=== PATIENT | female | born 1960 ===

== ENCOUNTER 2018-05-21 07:32 | Day surgery (SDC) | payer OTHER ==
[2018-05-20 08:35] VITALS: BMI 22.6
[~2018-05-21 07:32] MED LIST: Lactated Ringer's 500 ML IV ONE; Phenylephrine 2.5% Opht Soln OS SCH; Tropicamide 0.5% Opht Sol OS SCH
[2018-05-21] MEDS ORDERED: Lactated Ringer's 500 ML IV ONE (08:00)
[2018-05-21] MEDS ORDERED: Povidone Iodine Ophthalmic 5% Soln ONE ×2 (08:17→08:19)
[2018-05-21] MEDS ORDERED: Tetracaine 0.5% Ophth (OR ONLY) ONE (08:17)
[2018-05-21] MEDS ORDERED: Carbachol 0.01% IO ONE (08:17)
[2018-05-21] MEDS ORDERED: Chondroitin/Hyaluronate Opth Syringe KIT (0.55 ml-0.5 ml) IO ONE (08:18)
[2018-05-21] MEDS ORDERED: Lidocaine 2% MPF (5 ml) Inj ONE (08:18)
[2018-05-21] MEDS ORDERED: Hyaluronidase Human, Recombi 150 U/ML VIAL ONE (08:18)
[2018-05-21] MEDS ORDERED: Propofol 10 mg/ml Inj (20 ML) ONE (09:25)
[2018-05-21] MEDS ORDERED: Midazolam 2 MG/2 ML VIAL ONE (09:25)
[2018-05-21] MEDS: Tobramycin/Dexamethasone OPHT OINT ONE ×2 (09:38→09:43)
[2018-05-21 12:22] VITALS: TEMP 96
[2018-05-21 12:26] VITALS: BP 128/70; PULSE 78; RESP 21; O2SAT 99
--- NOTE | 2018-05-21 17:50 | OP ---
PROCEDURE DATE: 05/21/2018 PREOPERATIVE DIAGNOSIS: Mature nuclear cataract, left eye. POSTOPERATIVE DIAGNOSIS: Mature nuclear cataract, left eye. PROCEDURE: Cataract extraction with lens implant, left eye. SURGEON: Mazin Oropeza MD TYPE OF ANESTHESIA: Retrobulbar block. COMPLICATIONS: None. ESTIMATED BLOOD LOSS: Zero. DESCRIPTION OF PROCEDURE: The patient was brought to the operating room and properly identified. Anesthesia staff administered intravenous sedation and retrobulbar block was given to the surgical eye. The patient was then prepped and draped in the usual sterile fashion. Attention was turned to the surgical eye. A lid speculum was placed into interpalpebral fissure. Sitting temporally, two paracentesis incisions were made. The anterior chamber was filled with viscoelastic and a triplanar clear corneal incision was made. Using a cystitome, anterior capsular leaflet was created. Utrata forceps were used to create a continuous curvilinear capsulorrhexis. Balanced salt solution on a cannula was used to hydrodissect and hydrodelineate the lens. The lens was then phacoemulsified with no complications. Automated irrigation and aspiration was used to remove the cortex. Viscoelastic was used to deepen the anterior chamber. The lens was placed in the capsular bag. Automated irrigation and aspiration was used to remove the viscoelastic. The anterior chamber was filled with Miochol. The wounds were hydrated with balanced salt solution. There was noted to be no leak at the end of the case and the lens was well positioned. The lid speculum was removed. The eye was given antibiotics and steroids and covered with a patch and shield. The patient was returned to the recovery room in stable condition. . Mazin Oropeza MD
== END 2018-05-21 10:40 | disposition home or self-care (01) ==
LOC: C.SDS 07:32
PROVIDERS: ATTEND Ophthalmology
DX: H25.12 Age-related nuclear cataract, left eye (principal)
CPT/HCPCS: 66984; 82948; J2250; J2704; J3470; J7120

== ENCOUNTER 2018-06-04 06:21 | Day surgery (SDC) | payer OTHER ==
[2018-05-20 08:35] VITALS: BMI 22.6
[~2018-06-04 06:21] MED LIST changes: +Cyclopentolate 1% Opth (2 ml) OD SCH; +Phenylephrine 2.5% Opht Soln OD SCH; -Phenylephrine 2.5% Opht Soln OS SCH; +Tropicamide 0.5% Opht Sol OD SCH; -Tropicamide 0.5% Opht Sol OS SCH
[2018-06-04] MEDS ORDERED: Povidone Iodine Ophthalmic 5% Soln ONE (07:24)
[2018-06-04] MEDS ORDERED: Tetracaine 0.5% Ophth (OR ONLY) ONE (07:25)
[2018-06-04] MEDS ORDERED: Carbachol 0.01% IO ONE (07:25)
[2018-06-04] MEDS ORDERED: Hyaluronidase Human, Recombi 150 U/ML VIAL ONE (07:26)
[2018-06-04] MEDS ORDERED: Chondroitin/Hyaluronate Opth Syringe KIT (0.55 ml-0.5 ml) IO ONE (07:26)
[2018-06-04] MEDS ORDERED: Lidocaine 2% MPF (5 ml) Inj ONE (07:27)
[2018-06-04] MEDS ORDERED: Tobramycin/Dexamethasone OPHT OINT ONE (07:27)
[2018-06-04] MEDS ORDERED: Lactated Ringer's 500 ML IV ONE (07:40)
[2018-06-04] MEDS ORDERED: Tropicamide 1% Opht SOLUTION OD SCH (07:45)
[2018-06-04] MEDS ORDERED: Propofol 10 mg/ml Inj (20 ML) ONE (08:43)
[2018-06-04 09:32] VITALS: O2SAT 99
[2018-06-04 11:02] VITALS: BP 111/72; PULSE 89; RESP 16; TEMP 97.6
--- NOTE | 2018-06-04 19:23 | OP ---
PROCEDURE DATE: 06/04/2018 PREOPERATIVE DIAGNOSIS: Posterior subcapsular mature cataract, right eye. POSTOPERATIVE DIAGNOSIS: Posterior subcapsular mature cataract, right eye. PROCEDURE: Cataract extraction with lens implant, right eye. SURGEON: Mazin Oropeza MD ANESTHESIA: Retrobulbar block. COMPLICATIONS: None. ESTIMATED BLOOD LOSS: Zero. PROCEDURE: The patient was brought to the operating room and properly identified. Anesthesia staff administered intravenous sedation and retrobulbar block was given to the surgical eye. The patient was then prepped and draped in the usual sterile fashion. Attention was turned to the surgical eye. A lid speculum was placed into interpalpebral fissure. Sitting temporally, two paracentesis incisions were made. The anterior chamber was filled with viscoelastic and a triplanar clear corneal incision was made. Using a cystitome, anterior capsular leaflet was created. Utrata forceps were used to create a continuous curvilinear capsulorrhexis. Balanced salt solution on a cannula was used to hydrodissect and hydrodelineate the lens. The lens was then phacoemulsified with no complications. Automated irrigation and aspiration was used to remove the cortex. Viscoelastic was used to deepen the anterior chamber. The lens was placed in the capsular bag. Automated irrigation and aspiration was used to remove the viscoelastic. The anterior chamber was filled with Miochol. The wounds were hydrated with balanced salt solution. There was noted to be no leak at the end of the case and the lens was well positioned. The lid speculum was removed. The eye was given antibiotics and steroids and covered with a patch and shield. The patient was returned to the recovery room in stable condition. Mazin Oropeza MD
== END 2018-06-04 10:05 | disposition home or self-care (01) ==
LOC: C.SDS 06:21
PROVIDERS: ATTEND Ophthalmology
DX: H25.041 Posterior subcapsular polar age-related cataract, right eye (principal); E11.9 Type 2 diabetes mellitus without complications; I10 Essential (primary) hypertension
CPT/HCPCS: 66984; 82948; J2704; J3470; J7120; V2632